=== PATIENT | male | born 1950 | race Caucasian/White ===

== ENCOUNTER 2017-01-13 19:40 | Emergency (ER) | payer BC ==
[2017-01-13] MEDS ORDERED: Sodium Chloride 0.9% 1,000 ML PRIMARY IV ONE (20:33)
[2017-01-13] MEDS ORDERED: KETOROLAC 30 MG/1 ML VIAL IVP ONE (20:33)
[2017-01-13] MEDS ORDERED: NORMAL SALINE 10 ML SYRINGE FLUSH IVP PRN (20:33)
[2017-01-13] MEDS ORDERED: diphenhydrAMINE 50 MG/1 ML VIAL IVP ONE (20:34)
[2017-01-13] MEDS ORDERED: Prochlorperazine Edisylate Inj 10mg/2ml vial IVP ONE (20:34)
[2017-01-13 20:58] LABS: BASOPHILS # (AUTO) 0.14 10*3/UL; BASOPHILS % (AUTO) 1.8 % (0-1); EOSINOPHILS # (AUTO) 0.04 10*3/UL; EOSINOPHILS % (AUTO) 0.5 % (0-8); HEMATOCRIT 46.2 % (42.0-52.0); HEMOGLOBIN 16.2 g/dL (14.0-18.0); LYMPHOCYTES # (AUTO) 1.01 10*3/uL; MEAN CORPUSCULAR HEMOGLOBIN 28.6 PG (27-31); MEAN CORPUSCULAR HGB CONC 35.1 g/dL (33-37); MEAN CORPUSCULAR VOLUME 81.6 FL (80-90); MEAN PLATELET VOLUME 11.4 FL (7.4-12.2); MONOCYTES # (AUTO) 0.94 10*3/UL (0.3-0.8); MONOCYTES % (AUTO) 12.1 % (5-15); NEUTROPHILS # (AUTO) 5.59 10*3/UL; NEUTROPHILS % (AUTO) 72.3 % (50-80); RED BLOOD COUNT 5.66 10^6/uL (4.70-6.10)
[2017-01-13 20:59] LABS: PLATELET MORPHOLOGY COMMENT NORMAL MORPHOLOGY (NORM); RBC MORPHOLOGY COMMENT NORMAL MORPHOLOGY (NORM); WBC MORPHOLOGY COMMENT NORMAL MORPHOLOGY (NORM)
[2017-01-13 21:03] LABS: BLOOD UREA NITROGEN 12 mg/dL (7-22); BUN/CREATININE RATIO 17.14 (6-20); C-REACTIVE PROTEIN 0.6 mg/dL (0.0-0.9); CALCIUM 9.1 mg/dL (8.7-10.7); EST GLOMERULAR FILTRATION > 60 (>60 ml/min/1.73m(2)); SERUM ALBUMIN 4.4 g/dL (3.5-4.8)
[2017-01-13 21:42] VITALS: RESP 18; TEMP 98.4
[2017-01-13] MEDS ORDERED: Ondansetron ODT Tab 8 MG TAB PO SCH (22:45)
--- NOTE | 2017-01-13 23:10 | PDOC ---
General Adult HPI - General Chief Complaint: General Medical Stated Complaint: Rash to left side of face, body aches, N/V Date Seen by Provider: 01/13/17 Time Seen by Provider: 20:05 Source: POSITIVE: Patient Exam Limitations: POSITIVE: No limitations Nurse's Notes Reviewed & Considered: Yes - History of Present Illness Initial Comment: The patient is a 67-year-old male who presents to the emergency department with nausea vomiting and continued headache. The patient states that approximately a week ago he had onset of what he describes as an ice pick type headache that started at the back of his head and then became centered behind his left eye. He was traveling over the past week and was evaluated several times. Initially he was evaluated at an urgent care and diagnosed with a sinus infection. He had increasing pain and pressure behind his left eye and was evaluated by an station operator who could not find any significant abnormalities. He subsequently started to break out in a rash around the left eye and was evaluated in an emergency room in [place]. He had a CT scan of his head at that time which was normal. He was diagnosed with shingles and started on acyclovir and was given Neurontin and [place] for pain. He states that over the past couple of days he has been unable to keep his medications down secondary to associated nausea and vomiting. He has continued headache as well. He reports that the vision in his left eye remains good despite all of the swelling and pain around the eye. He has follow-up appointments with his primary care provider tomorrow and with the station operator on Friday. Have you received a tetanus shot in the past 10 years?: Unknown - Patient Home Medications Home Medications: Home Medications Aspirin [Aspirin Ec] 1 tab PO DAILY tab 08/06/13 Atorvastatin Calcium [Lipitor] 1 tab PO QPM #90 tab 05/16/16 Sertraline HCl 1 tab PO QHS #90 tab 05/16/16 Valsartan/Hydrochlorothiazide [Diovan Hct 80-12.5 Mg Tablet] 1 tab PO DAILY #90 tab 05/16/16 Mupirocin 22 gm TOPICAL BID #1 tube 10/21/16 Acyclovir 800 mg PO Q4HR 01/13/17 Gabapentin 300 mg PO TID 01/13/17 Hydrocodone/Acetaminophen [[place] 7.5-325 Tablet] 1 tab PO PRN PRN 01/13/17 Ondansetron Odt [Zofran Odt] 8 mg PO Q6H PRN #10 tab.[email or web address] 01/13/17 - Patient Allergies Allergies/Adverse Reactions: Allergies Allergy/AdvReac Type Severity Reaction Status Date / Time No Known Allergies Allergy Verified 01/13/17 20:25 Past Medical History - heen HEENT History: Denies History Cardiovascular History: Hypertension, Hyperlipidemia Respiratory History: Pneumonia, Other (please comment) Additional Respiratory History: criocothyrotomy and trach; pt reports had a fat embolism after a right knee fracture. Gastrointestinal History: Denies History Genitourinary History: Denies History Endocrine History: Denies History Musculoskeletal History: Other (please comment) Prosthesis or Implant: No Additional Musculoskeletal History: right knee fracture. left shoulder surgery Neurological History: Denies History Blood Disorders: Denies History Psychiatric History: Anxiety Disorders Male Reproductive History: Denies History Cancer History: Denies History In Past Year Been Physically Harmed or Verbally Threatened: No History of MDRO: No Tobacco Use: Never Smoker Alcohol Use: Heavy Type of alcohol normally used: Beer How much alcohol do you normally drink a day?: daily Substance Use Type: None Previous Surgical History: Yes Type / Date of Surgery: vasectomy. left shoulder Significant Family History: No pertinent family hx Past Medical History Reviewed: Reviewed - No Changes ROS - Limitations ROS Limitations: No Limitations Constitution: DENIES: Chills, Fever Cardiovascular: REPORTS: Denies Cardiac Symptoms Respiratory: REPORTS: Denies Resp Symptoms Neurological: REPORTS: Headache. DENIES: Numbness, Weakness Gastrointestinal: REPORTS: Nausea, Vomitting. DENIES: Abdominal Pain Musculoskeletal: REPORTS: Denies MS Symptoms Eyes: DENIES: Vision Changes ENT: DENIES: Congestion, Sinus Problem Skin: DENIES: Rash General Adult Exam - General Appearance General Appearance: POSITIVE: Alert, Cooperative, No Acute Distress - HEENT HEENT: POSITIVE: Other (The patient does have multiple erythematous raised areas surrounding the left eye extending to the left hinduism, these have some early blistering, there is periorbital swelling as well as well as a left-sided subconjunctival hemorrhage, extraocular eye movements are intact and he reports his vision is normal) - Neck Neck: POSITIVE: Normal Inspection - Respiratory Respiratory: POSITIVE: No Respiratory Distress, Breath Sounds Normal - Cardiovascular Cardiovascular: POSITIVE: Regular Rate & Rhythm, No Murmur Peripheral Pulses: Dorsalis-pedis (R): 2+, Dorsalis-pedis (L): 2+ - Abdomen Abdomen: Soft: (All Quadrants), Denies Tenderness: (All Quadrants), No Distention: (All Quadrants) - Skin Skin: POSITIVE: Normal Color, No Rash - Extremities Extremity: Normal ROM: (All Extremities), Normal Inspection: (All Extremities) - Neurological / Psychological Neurological: POSITIVE: Oriented X3, Motor Normal, Sensation Normal General Adult Progress - Results Reviewed by me Lab Results Reviewed: Yes Lab Results:: Laboratory Results 01/13/17 Range/Units 20:48 WBC 7.74 (4.8-10.8) 10^3/uL RBC 5.66 (4.70-6.10) 10^6/uL Hgb 16.2 (14.0-18.0) g/dL Hct 46.2 (42.0-52.0) % MCV 81.6 (80-90) FL MCH 28.6 (27-31) PG MCHC 35.1 (33-37) g/dL RDW Std Deviation 45.1 (39-50) fL RDW Coeff of Chandra 14.9 H (11.5-14.5) % Plt Count 432 H (140-350) 10*3/uL MPV 11.4 (7.4-12.2) FL Immature Gran % (Auto) 0.3 (0-5) % Neut % (Auto) 72.3 (50-80) % Lymph % (Auto) 13.0 (10-50) % [place] % (Auto) 12.1 (5-15) % Eos % (Auto) 0.5 (0-8) % Baso % (Auto) 1.8 H (0-1) % Immature Gran # (Auto) 0.02 10*3/UL Neut # (Auto) 5.59 10*3/UL Lymph # (Auto) 1.01 10*3/uL Hudson # (Auto) 0.94 H (0.3-0.8) 10*3/UL Eos # (Auto) 0.04 10*3/UL Baso # (Auto) 0.14 10*3/UL WBC Morphology Comment Normal morphology (NORM) Plt Morphology Comment Normal morphology (NORM) RBC Morph Comment Normal morphology (NORM) Sodium 129 L (135-145) meq/L Potassium 4.0 (3.8-5.2) meq/L Chloride 88 L (98-112) meq/L Carbon Dioxide 31 (23-33) meq/L Anion Gap 10 (5-20) BUN 12 (7-22) mg/dL Creatinine 0.7 (0.70-1.50) mg/dL Estimated GFR > 60 (>60 ml/min/1.73m(2)) BUN/Creatinine Ratio 17.14 (6-20) Glucose 105 (78-110) mg/dL Calculated Osmolality 267.0 (267-292) mOsm/kg Calcium 9.1 (8.7-10.7) mg/dL Magnesium 2.0 (1.6-2.4) mg/dL Total Bilirubin 1.0 (0.3-1.2) mg/dL AST 21 (21-57) IU/L ALT 33 (21-72) IU/L Alkaline Phosphatase 69 (38-126) IU/L C-Reactive Protein 0.6 (0.0-0.9) mg/dL Total Protein 7.4 (6.1-8.0) g/dL Albumin 4.4 (3.5-4.8) g/dL Globulin 3.0 (2.50-4.10) g/dL Albumin/Globulin Ratio 1.40 (1.3-2.0) mg/g - Patient's Progress MDM / ED Course: Shortly after arrival an IV was established and the patient did receive a 1 L bolus of normal saline. In addition he received Toradol 30 mg IV as well as Compazine 5 mg IV and Benadryl 25 mg IV. He had significant relief in headache. His nausea was also significantly improved. He was able to drink a bottle of water here in the emergency room without any further emesis. He clearly has shingles to the left for head and around his left eye. He will continue acyclovir as previously prescribed. He was given Zofran as needed for nausea. He will continue Neurontin and [place] for pain. He is advised to return to the emergency room if he develops any persistent vomiting or dehydration, increased pain, fevers or chills, any worsening or change in symptoms. He has follow-up already scheduled with primary care tomorrow and with the documentation improvement specialist on Friday. - Consult Counseled: POSITIVE: Patient, RE: Lab Results, RE: DX, RE: Need for F/U Patient Care Time - Estimated PCT Patient Care Time (In Minutes): 25 Vital Signs - VS Reviewed Vital Signs Reviewed: Yes Discharge Clinical Impression: Shingles, Vomiting, Dehydration Discharge Disposition: Discharged to Home Condition: Stable Prescriptions / Orders: Ondansetron Odt [Zofran Odt] 8 mg PO Q6H PRN #10 tab.rapdis PRN Reason: Nausea And Vomiting Patient Instructions Given at Discharge: Dehydration (ED), Shingles (ED), Acute Nausea and Vomiting (ED) Additional Instructions: You've been prescribed Zofran 8 mg every 4-6 hours as needed for nausea or vomiting. Continue your antiviral medication and pain medication as previously prescribed. Push fluids. Take pain medication with food if possible. Return to the emergency room if increased vomiting or dehydration, any worsening or change in symptoms. Keep your appointment with primary care tomorrow and with the eye doctor on Friday. Follow Up With: ROGRE LEE [Primary Care Provider] -
== END 2017-01-13 22:52 | disposition home or self-care (01) ==
LOC: ER 19:40
DX: E86.0 Dehydration (principal); R51 Headache; H57.12 Ocular pain, left eye; B02.9 Zoster without complications; R11.2 Nausea with vomiting, unspecified
CPT/HCPCS: 80053; 83735; 85025; 86140; 96361; 96374; 96375; 99282; 99283; J1200; J1885; Q0162; J0780; J7030

== ENCOUNTER → 2017-04-15 | Outpatient (CLI) | payer BC ==
[2017-04-15 08:56] LABS: BLOOD UREA NITROGEN 29 mg/dL (7-22); BUN/CREATININE RATIO 32.22 (6-20); CALCIUM 9.4 mg/dL (8.7-10.7); EST GLOMERULAR FILTRATION > 60 (>60 ml/min/1.73m(2)); SERUM ALBUMIN 4.5 g/dL (3.5-4.8)
[2017-04-15 09:05] LABS: CHOL/HDL RATIO 4.41 RATIO (0-4.0); LDL CHOLESTEROL,CALCULATED 84.8 mg/dL
== END ==
LOC: LAB 08:03
PROVIDERS: ATTEND Internal Medicine
DX: E78.5 Hyperlipidemia, unspecified (principal); I10 Essential (primary) hypertension
CPT/HCPCS: 36415; 80053; 80061; 82550

== ENCOUNTER → 2017-04-18 | Outpatient (CLI) | payer BC ==
--- NOTE | 2017-04-18 18:39 | DI ---
CT CHEST SCAN WITHOUT IV CONTRAST, 04/18/2017 2:04 PM : Clinical History: Hemoptysis. Previous Exam: None at this facility. Scans are performed from the base of the neck to the lower lung bases without IV contrast. Sagittal a nd coronal images using non MIPS and MIPS technique are generated. The base of the neck and thoracic inlet are normal. There are no abnormal axillary, supraclavicular, mediastinal, or hilar nodes. The heart is normal. There are calcifications in the proximal and middle thirds of the LAD and the proximal half of the left circumflex artery. Small scattered calcification s are present in the right coronary artery. There is no acute infiltrate or effusion. There are multi ple bilateral pleural-based noncalcified nodules less than 4 mm in diameter. Under the current [employer] [employer] Society 2017 guidelines for management of incidentally detected pulmonary nodules in adults, no followup of these multiple nodules is required if the patient is low risk for developing lung cancer. If the patient is high-risk, then it esophageal to have a followup CT scan in 12 months. The vast ma jority of these pleural-based lesions are typically postinflammatory in origin. Both adrenal glands, and the visualized portions of the liver, spleen, and pancreas are normal. READIN. Normal CT chest scan without IV contrast. 2. Coronary artery disease manifested by calcifications in the LAD, left circumflex artery, and the right coronary artery. 3. There are multiple less than 4 mm diameter pleural-based nodules bilaterally. No followup is requ ired if this patient is considered to be low risk for developing lung cancer. If he is in the high-ri sk category, then it is optional to have a followup CT scan in 12 months.
--- NOTE | 2017-04-21 09:49 | DI ---
CT SINUS SCAN, 04/18/2017 2:04 PM : Clinical History: Hemoptysis. Previous Exam: None at this facility. Scans are obtained from the base of the skull through the paranasal sinuses in the axial plane using very low dose with high resolution technique. Direct coronal reformatted images are generated perpend icular to the hard palate. The frontal, ethmoid, maxillary, and sphenoid sinuses are normal. The bony septum is midline. The mid dle and inferior turbinates as well as the ostiomeatal complex are normal. READING: Normal CT sinus scan.
== END ==
LOC: CT 13:53
PROVIDERS: ATTEND Internal Medicine
DX: R04.2 Hemoptysis (principal); I25.10 Atherosclerotic heart disease of native coronary artery without angina pectoris
CPT/HCPCS: 70486; 71250